=== PATIENT | female | born 1940 | race Hispanic/Latino ===

== ENCOUNTER 2017-04-12 11:19 | Emergency (ER) | payer MEDICARE ==
[2017-04-12 11:24] VITALS: BP 136/60; PULSE 97; RESP 20; TEMP 97.6; O2SAT 99
[2017-04-12 11:25] VITALS: BMI 29.2
--- NOTE | 2017-04-12 11:52 | ED PDOC ---
HPI: General Adult Time Seen by Provider: 04/12/17 11:30 Chief Complaint (Nursing): Lower Extremity Problem/Injury History Per: Patient Additional Complaint(s): Pt. states for the past week she's had atraumatic L knee and L calf pain. Reports that since April 2016 she's been applying more pressure to the leg as she broke her R femur. Pt. states she developed a R leg DVT secondary to the femur surgery. Denies numbness, tingling, recent prolonged immobilization, recent surgery, chest pain, SOB, palpitations. Past Medical History Reviewed: Historical Data, Nursing Documentation, Vital Signs Vital Signs: Last Vital Signs Temp 97.6 F 04/12/17 11:22 Pulse 97 H 04/12/17 11:22 Resp 20 04/12/17 11:22 BP 136/60 04/12/17 11:22 Pulse Ox 99 04/12/17 11:55 - Medical History PMH: Arthritis, Asthma, Atrial Fibrillation, Cardia Arrhythmia, HTN, Hypercholesterolemia Denies: HIV, Chronic Kidney Disease - Surgical History Surgical History: Cholecystectomy, Tonsillectomy - Family History Family History: States: No Known Family Hx - Home Medications Home Medications: Ambulatory Orders Medication Instructions Recorded Albuterol 0.083% [Albuterol 0.083% 2.5 mg IH QID #0 neb 06/17/16 Inhal Samantha (2.5 mg/3 ml) UD] Atorvastatin [Lipitor] 10 mg PO HS #0 tab 06/17/16 Bisacodyl [Dulcolax] 10 mg RC DAILY PRN #0 sup 06/17/16 Calcium/Magnesium/Zinc [Sm 1 each PO TID #0 tablet 06/17/16 Vultejy-Poetcmnxp-Nhna Tab] Docusate [Colace] 100 mg PO BID #0 cap 06/17/16 Dronedarone [Multaq] 400 mg PO BID #0 tab 06/17/16 Enalapril Maleate [Vasotec] 10 mg PO Q12 #0 tab 06/17/16 Fluticasone/Vilanterol [Breo 1 each IH DAILY #0 blst.w.dev 06/17/16 Ellipta 200-25 Mcg INH] Ipratropium 0.02% [Atrovent] 2.5 ml IH QID #0 neb 10/21/16 Magnesium Hydroxide [Milk Of 30 ml PO HS PRN #0 udc 06/17/16 Magnesia] Ondansetron [Zofran Inj] 4 mg INJ Q6 PRN #0 vial 06/17/16 Pantoprazole [Protonix EC Tab] 40 mg PO DAILY #0 ect 06/17/16 Polyethylene Glycol 3350 [Miralax] 17 gm PO DAILY #0 powd.pack 06/17/16 Pregabalin [Lyrica] 50 mg PO BID #0 cap 06/17/16 Rivaroxaban [Xarelto] 15 mg PO BID #0 tab 06/17/16 Sennosides A and B [Senokot Tab] 2 tab PO HS #0 tab 06/17/16 Zolpidem [Ambien] 5 mg PO HS PRN #0 tab 06/17/16 oxyCODONE/Acetaminophen [Percocet 1 tab PO Q4H PRN #0 tab 06/17/16 5/325 mg Tab] predniSONE [predniSONE Tab] 10 mg PO DAILY #0 tab 06/17/16 Lidocaine 5% [Lidoderm] 1 ea TD DAILY PRN #15 patch 04/12/17 - Allergies Allergies/Adverse Reactions: Allergies Allergy/AdvReac Type Severity Reaction Status Date / Time azithromycin [From Zithromax] Allergy RASH Verified 04/12/17 11:45 ciprofloxacin [From Cipro] Allergy RASH Verified 04/12/17 11:45 ciprofloxacin HCl Allergy RASH Verified 04/12/17 11:45 [From Cipro] levofloxacin [From Levaquin] Allergy RASH Verified 04/12/17 11:45 banana AdvReac VOMITING Verified 04/12/17 11:45 Review of Systems ROS Statement: Except As Marked, All Systems Reviewed And Found Negative Musculoskeletal: Positive for: Leg Pain Physical Exam - Reviewed Nursing Documentation Reviewed: Yes Vital Signs Reviewed: Yes - Physical Exam Appears: Positive for: Well, Non-toxic, No Acute Distress Head Exam: Positive for: ATRAUMATIC, NORMAL INSPECTION, NORMOCEPHALIC Skin: Positive for: Normal Color, Warm. Negative for: Rash Eye Exam: Positive for: EOMI, Normal appearance, PERRL ENT: Positive for: Normal ENT Inspection Neck: Positive for: Normal, Painless ROM Cardiovascular/Chest: Positive for: Regular Rate, Rhythm Respiratory: Positive for: Normal Breath Sounds. Negative for: Wheezing, Respiratory Distress Pulses-Dorsalis Pedis (L): 2+ Pulses-Dorsalis Pedis (R): 2+ Pulses-Femoral (L): 2+ Pulses-Femoral (R): 2+ Gastrointestinal/Abdominal: Positive for: Normal Exam, Bowel Sounds, Soft. Negative for: Tenderness Back: Positive for: Normal Inspection. Negative for: L CVA Tenderness, R CVA Tenderness Extremity: Positive for: Normal ROM, Other (L knee with mild swelling but no tenderness, deformity, warmth, or erythema. Both legs with varicose veins but varicose veins on L leg seem more prominent; L leg without pallor, skin changes. ). Negative for: Pedal Edema (b/l), Calf Tenderness (L calf tenderness) Neurologic/Psych: Positive for: Alert, Oriented. Negative for: Aphasia, Facial Droop - Laboratory Results Result Diagrams: 04/12/17 12:25 04/12/17 12:25 - ECG O2 Sat by Pulse Oximetry: 99 - Radiology X-Ray: Interpreted by Me (R knee x-ray) X-Ray Interpretation: Other (moderate DJD; nothing acute) - Progress ED Course And Treament: Labs ordered. Duplex LLE vein. Knee x-ray ordered. 1405 Duplex left lower extremity vein: no DVT On re-evaluation, pt. in no distress. DP pulses remain equal b/l. Pt. informed of results. Instructed to take Tylenol at home for pain. Pt. will also be prescribed Lidoderm patches. Disposition - Clinical Impression Clinical Impression: Knee pain - Patient ED Disposition Is Patient to be Admitted: No - Disposition Referrals: Mary Kumar [Outside] Disposition: Routine/Home Disposition Time: 14:07 Condition: STABLE Prescriptions: Lidocaine 5% [Lidoderm] 1 ea TD DAILY PRN #15 patch PRN Reason: pain Instructions: Knee Pain (ED) Forms: [employer] (Hungarian) Print Language: ARMENIAN
[2017-04-12 12:47] LABS: BASO # 0.1 K/uL (0.0-0.2); BASO % 1.3 % (0.0-2.0); EOS # 0.4 K/uL (0.0-0.7); EOS % 3.6 % (0.0-4.0); HEMOGLOBIN 11.9 g/dL (12.0-16.0); LYMPH # 2.9 K/uL (1.0-4.3); MEAN CELL VOLUME 84.2 fl (81.0-99.0); MEAN CORPUSCULAR HEMOGLOBIN 27.1 pg (27.0-31.0); MEAN CORPUSCULAR HGB CONC 32.2 g/dL (33.0-37.0); MEAN PLATELET VOLUME 7.4 fl (7.2-11.7); MONO # 0.6 K/uL (0.0-0.8); NEUT # 6.5 K/uL (1.8-7.0); NEUT % 62.1 % (50.0-75.0); RBC 4.41 Mil/uL (3.80-5.20); RED CELL DISTRIBUTION WIDTH 14.7 % (11.5-14.5); WHITE BLOOD COUNT 10.6 K/uL (4.8-10.8)
[2017-04-12 12:53] LABS: ALB/GLOB RATIO 1.4 (1.0-2.1); ALBUMIN 4.1 g/dL (3.5-5.0); ALT/SGPT 36 U/L (9-52); AST/SGOT 44 U/L (14-36); BLOOD UREA NITROGEN 10 mg/dl (7-17); CALCIUM 10.3 mg/dL (8.4-10.2); GFR AFRICAN-AMERICAN > 60; GFR NON-AFRICAN AMERICAN > 60
[2017-04-12 12:57] LABS: INR 1.3 (0.9-1.2); PARTIAL THROMBOPLASTIN TIME 47.8 Seconds (25.6-37.1); PROTHROMBIN TIME 12.9 Seconds (9.8-13.1)
--- NOTE | 2017-04-12 13:08 | RAD ---
PROCEDURE: Left Knee Radiographs. HISTORY: Pain. COMPARISON: None. FINDINGS: BONES: Bone alignment and mineralization are normal. There is no acute displaced fracture or bone destruction. There is a dorsal patellar enthesophyte JOINTS: There is mild degenerative osteoarthrosis in the medial compartment with reduced joint space, marginal spurring and tibial spiking. JOINT EFFUSION: There is a small suprapatellar joint effusion. OTHER FINDINGS: None. IMPRESSION: Mild degenerative osteoarthrosis in the medial compartment and small suprapatellar joint effusion.
--- NOTE | 2017-04-12 13:42 | US ---
HISTORY: pain . PRIORS: None. FINDINGS: 2-D, color and duplex Doppler analysis of the lower extremity venous circulation using routine protocol from the femoral veins through the popliteal veins. Venous compressibility: Normal. Flow and augmentation patterns: Normal. Visualized veins upper third of calf: Normal. Carnes cyst: None. IMPRESSION: No sonographic or Doppler evidence for DVT in left lower extremity.
== END 2017-04-12 14:00 | disposition home or self-care (01) ==
LOC: H.ER 11:19
DX: M25.562 Pain in left knee (principal); I10 Essential (primary) hypertension; I48.91 Unspecified atrial fibrillation; J45.909 Unspecified asthma, uncomplicated; Z79.01 Long term (current) use of anticoagulants

== ENCOUNTER 2019-01-23 09:10 | Day surgery (SDC) | payer MEDICARE, OTHER ==
[2019-01-23 09:39] VITALS: BMI 28.6
--- NOTE | 2019-01-23 09:51 | CP.SDSHP ---
Same Day Surgery H & P - History Proposed Procedure: Thoracic medial branch nerve blocks Pre-Op Diagnosis: Thoracic spondylosis - Previous Medical/Surgical History Cardiac: Hypertension, Arrhythmia Pulmonary: Bronchitis - Allergies Allergies: Allergies azithromycin [From Zithromax] Allergy (Verified 01/23/19 09:39) RASH ciprofloxacin [From Cipro] Allergy (Verified 01/23/19 09:39) RASH ciprofloxacin HCl [From Cipro] Allergy (Verified 01/23/19 09:39) RASH levofloxacin [From Levaquin] Allergy (Verified 01/23/19 09:39) RASH banana Adverse Reaction (Verified 01/23/19 09:39) VOMITING - Physical Exam Mental Status: Alert & Oriented x3 Neuro: WNL Heart: WNL Lungs: WNL GI: WNL - Impression Impression: thoracic spondylosis Pt. Evaluated Today:Candidate for Anesthesia & Procedure: Yes Short Stay Discharge - Short Stay Discharge Admitting Diagnosis/Reason for Visit: M47.814 Disposition: HOME/ ROUTINE Referrals: Darnell Jacob MD [Primary Care Provider] -
[2019-01-23 09:59] VITALS: RESP 18
[2019-01-23] MEDS ORDERED: Bupivacaine HCl 0.5% PF (30 ml) Inj ONE (10:48)
[2019-01-23] MEDS ORDERED: MethylPREDNISolone Depo 40 mg/ml Inj ONE (10:48)
[2019-01-23] MEDS ORDERED: Lidocaine 1% Inj (20ml) ONE (10:48)
[2019-01-23] MEDS ORDERED: Bupivacaine 0.5% Inj(30mL) IJ ONE ×2 (10:55→11:22)
[2019-01-23] MEDS ORDERED: Lidocaine 1% Inj (20ml) IJ ONE ×2 (10:55→11:22)
[2019-01-23] MEDS ORDERED: methylPREDNISolone Depo 80 mg/ml Inj IM ONE ×2 (10:56→11:22)
[2019-01-23] MEDS ORDERED: Lactated Ringer's 1,000 ML IV ONE (11:15)
[2019-01-23] MEDS ORDERED: Midazolam 2 MG/2 ML VIAL ONE (11:18)
[2019-01-23] MEDS ORDERED: Lactated Ringer's 500 ML IV SCH (11:45)
[2019-01-23 12:59] VITALS: O2SAT 94
[2019-01-23 13:25] VITALS: BP 134/60; PULSE 70; TEMP 97.6
--- NOTE | 2019-01-23 14:09 | RAD ---
Date of service: 01/23/2019 PROCEDURE: Intraoperative Fluoroscopy. HISTORY: PAIN MANAGEMENT FINDINGS: Fluoroscopic assistance was provided. Fluoroscopy time = 14.0 sec. Radiation dose = 5.47 mGy. Please refer to the operative report from TOM Hendrickson.
--- NOTE | 2019-01-23 15:31 | PROCN ---
DATE: 01/23/2019 PREOPERATIVE DIAGNOSIS: Thoracic spondylosis. POSTOPERATIVE DIAGNOSIS: Thoracic spondylosis. PROCEDURE: Right T8, T9, T10, and T11 medial branch nerve blocks. ANESTHESIOLOGIST: Dr. Ruff. SURGEON: Kiley Bess MD ANESTHESIA TYPE: Monitored anesthesia care. COMPLICATIONS: None. SPECIMENS: None. DESCRIPTION OF PROCEDURE: As follows: After we had discussion of the procedure with the patient including its risks, benefits, alternatives, outcome data, possibility of no effect or increased pain, the patient consented to the procedure. She has stopped Pradaxa for two days prior to the injection. I explained to her that her risk of bleeding is slightly higher; however, at the location of the injection, there are no major blood vessels. She elected to proceed with the injection. The patient was placed on the fluoroscopy table in a prone position with two pillows underneath her chest. The thoracic spine was prepped and draped in a usual sterile fashion and a sterile technique was adhered to during the entire procedure. The T8, T9, T10, and T11 vertebral levels were first identified on the anterior-posterior view. The targets of the medial branch nerves are located at the superolateral quadrant of the corresponding pedicles on the right side. The skin overlying the four above targets were then infiltrated with 1% lidocaine using 25-gauge needle. Subsequently, a 25-gauge 3.5-inch spinal needle was then incrementally advanced under fluoroscopic guidance until tip of the needle made bony contact with the targets. The needle was then walked slightly laterally until the tip of the needle is located at the junction of the pedicle and the transverse process. After appropriate placement of all four needles, approximately 3 mL of 0.5% Marcaine and Depo-Medrol mixture was injected. The needle was removed and the patient's back was cleaned and dry bandages were applied. The patient was then transferred to the recovery area in good condition without any signs of BREAD AND PASTRY BAKER toxicity or any neurological deficit. She will be following in our office in approximately two to four weeks. Kiley Bess MD
== END 2019-01-23 13:45 | disposition home or self-care (01) ==
LOC: H.OPSURG 09:10
PROVIDERS: ATTEND Anesthesiology
DX: M47.814 Spondylosis without myelopathy or radiculopathy, thoracic region (principal); I10 Essential (primary) hypertension; Z88.1 Allergy status to other antibiotic agents
CPT/HCPCS: 64490; 64491; J1030; J1040; J2250; J2405; J3010; J7120